=== PATIENT | female | born 1985 | race Caucasian/White ===

== ENCOUNTER 2017-03-03 16:33 | Emergency (ER) | payer BC, MEDICAID ==
[2017-03-03] MEDS ORDERED: ACETAMINOPHEN 325 MG TABLET PO ONE ×2 (17:29→19:08)
--- NOTE | 2017-03-03 17:32 | ER Document Report ---
ED Medical Screen (RME) - General Chief Complaint: Abdominal Pain Stated Complaint: ABDOMINAL PAIN Time Seen by Provider: 03/03/17 17:21 Mode of Arrival: Ambulatory Information source: Patient Notes: This is a 32-year-old female at 6-7 WGA by LMP who presents with abdominal pain and nausea and vomiting. She reports lower abdominal cramping. She also reports severe epigastric discomfort. No fevers or chills. No vaginal bleeding. No dysuria. She has not had an ultrasound or seen OB for this . She took 2 Phenergan suppositories prior to arrival and states that her nausea is improved however her epigastric pain persists. She is suspicious of gallbladder disease, as she states she was told many years ago that she had gallbladder disease. I have greeted and performed a rapid initial assessment of this patient. A comprehensive ED assessment and evaluation of the patient, analysis of test results and completion of the medical decision making process will be conducted by additional ED providers. TRAVEL OUTSIDE OF THE [place] IN LAST 30 DAYS: No - Related Data Allergies/Adverse Reactions: latex [Latex] Allergy (Mild, Verified 03/03/17 16:48) sulfamethoxazole [Sulfamethoxazole] Allergy (Mild, Verified 03/03/17 16:48) Past Medical History - Social History Chew tobacco use (# tins/day): No Frequency of alcohol use: None Drug Abuse: None - Past Medical History Cardiac Medical History: Denies: Hx Coronary Artery Disease, Hx Heart Attack, Hx Hypertension Pulmonary Medical History: Reports: Hx Asthma - EXERCISE INDUCED/MEDICATED, Hx Bronchitis - 2011 Denies: Hx COPD, Hx Pneumonia Neurological Medical History: Reports: Hx Migraine. Denies: Hx Cerebrovascular Accident, Hx Seizures Renal/ Medical History: Denies: Hx Peritoneal Dialysis GI Medical History: Reports: Hx Irritable Bowel. Denies: Hx Hepatitis, Hx Hiatal Hernia, Hx Ulcer Musculoskeltal Medical History: Denies Hx Arthritis, Reports Hx Musculoskeletal Trauma Psychiatric Medical History: Reports: Hx Anxiety, Hx Depression Infectious Medical History: Denies: Hx Hepatitis Past Surgical History: Reports: Hx Section, Hx Gynecologic Surgery, Hx Orthopedic Surgery - Wrist surgery, Hx Tonsillectomy. Denies: Hx Hysterectomy, Hx Mastectomy, Hx Open Heart Surgery, Hx Pacemaker - Immunizations Immunizations up to date: Yes Hx Diphtheria, Pertussis, Tetanus Vaccination: Yes Physical Exam - Vital signs Vitals: Temp Pulse Resp BP Pulse Ox 98.3 F 82 20 121/59 L 100 03/03/17 16:48 03/03/17 16:48 03/03/17 16:48 03/03/17 16:48 03/03/17 16:48 Course - Vital Signs Vital signs: Temp Pulse Resp BP Pulse Ox 98.3 F 82 20 121/59 L 100 03/03/17 16:48 03/03/17 16:48 03/03/17 16:48 03/03/17 16:48 03/03/17 16:48
[2017-03-03 18:04] LABS: ABSOLUTE LYMPHOCYTES (AUTO) 0.5 10^3/uL (0.5-4.7); ABSOLUTE MONOCYTES (AUTO) 0.2 10^3/uL (0.1-1.4); ABSOLUTE NEUT (AUTO) 7.8 10^3/uL (1.7-8.2); BASOPHILS % (AUTO) 0.1 % (0-2); EOSINOPHILS % (AUTO) 0.1 % (0-6); HEMATOCRIT 36.4 % (36.0-47.0); HEMOGLOBIN 12.1 g/dL (12.0-15.5); HGB HCT DIFFERENCE -0.1; LYMPHOCYTES % (AUTO) 5.7 % (13-45); MEAN CORPUSCULAR HEMOGLOBIN 30.9 pg (27.0-33.4); MEAN CORPUSCULAR HGB CONC 33.1 g/dL (32.0-36.0); MEAN CORPUSCULAR VOLUME 93 fl (80-97); MONOCYTES % (AUTO) 2.3 % (3-13); RED BLOOD COUNT 3.91 10^6/uL (3.72-5.28); RED CELL DISTRIBUTION WIDTH 12.5 % (11.5-14.0); SEGMENTED NEUTROPHILS % (AUTO) 91.8 % (42-78); WHITE BLOOD COUNT 8.5 10^3/uL (4.0-10.5)
[2017-03-03 18:11] LABS: APPEARANCE,URINE SLIGHTLY-CLOUDY; BILIRUBIN,URINE NEGATIVE (NEGATIVE); GLUCOSE, URINE 150 mg/dL (NEGATIVE); KETONES,URINE 80 mg/dL (NEGATIVE); LEUKOCYTE ESTERASE,URINE NEGATIVE (NEGATIVE); NITRITE,URINE NEGATIVE (NEGATIVE); PROTEIN,URINE 100 mg/dL (NEGATIVE); URINE SPECIFIC GRAVITY 1.031; UROBILINOGEN,URINE NEGATIVE mg/dL (<2.0)
[2017-03-03 18:22] LABS: ALANINE AMINOTRANSFERASE 20 U/L (9-52); ALBUMIN 4.5 g/dL (3.5-5.0); ALKALINE PHOSPHATASE 40 U/L (38-126); ANION GAP 12 (5-19); ASPARTATE AMINO TRANSFERASE 17 U/L (14-36); BILIRUBIN,DIRECT 0.2 mg/dL (0.0-0.4); BILIRUBIN,TOTAL 0.7 mg/dL (0.2-1.3); BLOOD UREA NITROGEN 13 mg/dL (7-20); CALCIUM 9.8 mg/dL (8.4-10.2); CARBON DIOXIDE 22 mmol/L (22-30); CHLORIDE 102 mmol/L (98-107); CREATININE RESULT 0.61 mg/dL (0.52-1.25); GLUCOSE 111 mg/dL (75-110); SODIUM 136.3 mmol/L (137-145); TOTAL PROTEIN 7.3 g/dL (6.3-8.2)
[2017-03-03] MEDS ORDERED: ONDANSETRON HCL INJ/PF 4 MG/2 ML SDV IV ONE (19:08)
--- NOTE | 2017-03-03 19:09 | RADIOLOGY REPORT (SQ) ---
EXAM DESCRIPTION: U/S OB TRANSVAGINAL W/O DOP COMPLETED DATE/TIME: 03/03/2017 7:00 pm REASON FOR STUDY: early , abdominal pain COMPARISON: None. TECHNIQUE: Transvaginal static and realtime grayscale images acquired of the pelvis. Additional salvador cted spectral and color Doppler images recorded. All images stored on PACs. bHCG: Not available LIMITATIONS: None. FINDINGS: FETUS: Living intrauterine . EGA: 7 weeks 3 days BLADIMIR: 10/17/2017 FHR: 163 beats per minute. SUBCHORIONIC BLEED: Yes SIZE OF BLEED: 1.3 x 1.7 x 0.4 cm UTERUS: No masses. No anomalies. IGHT ADNEXA: Right ovary was not visualized No adnexal free fluid. No adnexal masses. LEFT ADNEXA: Left ovary was not visualized No adnexal free fluid. No adnexal masses. FREE FLUID: None. OTHER: No other significant finding. IMPRESSION: LIVING INTRAUTERINE . EGA 7 weeks 3 day Trimester of : First - 0 to 13 weeks. TECHNICAL DOCUMENTATION: JOB ID: [id number] [employer]- All Rights Reserved
--- NOTE | 2017-03-03 19:18 | ER Document Report ---
ED GI/ - General Mode of Arrival: Ambulatory Information source: Patient TRAVEL OUTSIDE OF THE [place] IN LAST 30 DAYS: No - HPI Patient complains to provider of: Abdominal pain Similar symptoms previously: Yes <MARIA DEL ROSARIO DONATO - Last Filed: 03/04/17 01:38> <MADISON MCPHERSON - Last Filed: 03/16/17 11:17> - General Chief Complaint: Abdominal Pain Stated Complaint: ABDOMINAL PAIN Time Seen by Provider: 03/03/17 17:21 Notes: Patient is a 32-year-old female who presents to the emergency department today with complaints of abdominal pain. Patient states she is , but she is not sure how far along she is. Patient states she believes she is approximately 6 weeks . Patient is A1. Patient states she has a history of chronic abdominal pain. "patient states she has had problems on and off for the last 13 years with her gallbladder. Patient denies any vaginal bleeding and cramping. (MARIA DEL ROSARIO DONATO) - Related Data Allergies/Adverse Reactions: latex [Latex] Allergy (Mild, Verified 03/03/17 16:48) sulfamethoxazole [Sulfamethoxazole] Allergy (Mild, Verified 03/03/17 16:48) Past Medical History - General Information source: Patient - Social History Smoking Status: Current Every Day Smoker Cigarette use (# per day): No Frequency of alcohol use: None Drug Abuse: None Lives with: Family Family History: Reviewed & Not Pertinent, Arthritis, CAD, DM, Hyperlipidemia, Hypertension, Malignancy Patient has suicidal ideation: No Patient has homicidal ideation: No Pulmonary Medical History: Reports: Hx Asthma - EXERCISE INDUCED/MEDICATED, Hx Bronchitis - 2011 Neurological Medical History: Reports: Hx Migraine GI Medical History: Reports: Hx Irritable Bowel Musculoskeltal Medical History: Reports Hx Musculoskeletal Trauma Psychiatric Medical History: Reports: Hx Anxiety, Hx Depression Past Surgical History: Reports: Hx Section, Hx Gynecologic Surgery, Hx Orthopedic Surgery - Wrist surgery, Hx Tonsillectomy - Immunizations Immunizations up to date: Yes Hx Diphtheria, Pertussis, Tetanus Vaccination: Yes <MARIA DEL ROSARIO DONATO - Last Filed: 03/04/17 01:38> Review of Systems - Review of Systems Constitutional: No symptoms reported EENT: No symptoms reported Cardiovascular: No symptoms reported Respiratory: No symptoms reported Gastrointestinal: See HPI, Abdominal pain, Nausea, Vomiting Genitourinary: No symptoms reported Female Genitourinary: See HPI, . denies: Vaginal bleeding Musculoskeletal: No symptoms reported Skin: No symptoms reported Hematologic/Lymphatic: No symptoms reported Neurological/Psychological: No symptoms reported -: Yes All other systems reviewed and negative <MARIA DEL ROSARIO DONATO - Last Filed: 03/04/17 01:38> Physical Exam <MARIA DEL ROSARIO DONATO - Last Filed: 03/04/17 01:38> <MADISON MCPHERSON - Last Filed: 03/16/17 11:17> - Vital signs Vitals: Temp Pulse Resp BP Pulse Ox 98.3 F 82 20 121/59 L 100 03/03/17 16:48 03/03/17 16:48 03/03/17 16:48 03/03/17 16:48 03/03/17 16:48 - Notes Notes: Physical Exam: General: Alert, appears uncomfortable. HEENT: Normocephalic. Atraumatic. PERRL. Extraocular movements intact. Oropharynx clear. Neck: Supple. Non-tender. Respiratory: No respiratory distress. Clear and equal breath sounds bilaterally. Cardiovascular: Regular rate and rhythm. Abdominal: Mild diffuse abdominal tenderness with palpation. No distension. Normal Bowel Sounds. Back: Non-tender. No deformity or step off. Extremities: Moves all four extremities. Upper extremities: Normal inspection. Normal ROM. Lower extremities: Normal inspection. No edema. Normal ROM. Neurological: Normal cognition. AAOx4. Normal speech. Psychological: Normal affect. Normal Mood. Skin: Warm. Dry. Normal color. (KINGA,MARIA DEL ROSARIO) Course - Laboratory Result Diagrams: 03/03/17 17:45 03/03/17 17:45 <MARIA DEL ROSARIO DONATO - Last Filed: 03/04/17 01:38> - Laboratory Result Diagrams: 03/03/17 17:45 03/03/17 17:45 <MADISON MCPHERSON - Last Filed: 03/16/17 11:17> - Re-evaluation Re-evalutation: 03/03/17 20:50 Emergency department chief complaint of epigastric abdominal pain and vomiting. She is early in her about 6-7 weeks by dates. She has a chronic history of chronic abdominal pain gastroparesis and used to see a GI specialist but due to running out of insurance has not seen them lately. She has mild epigastric pain which she describes as similar to her previous episodes also was told a number years ago she had some gallstones but was not surgical in nature. She denies any fevers chills cough chest pain is also had some nausea and vomiting with this. Does not radiate into the back she is not short of breath or chest pain. No urinary symptoms vaginal bleeding or discharge. No low back pain. On physical exam she is well-appearing nontoxic vomiting at the bedside. Blood pressure stable she is afebrile not tachycardic heart lungs normal abdomen mild epigastric tenderness without associated guarding rebound rigidity pulsatile abdominal masses or concerns for intra-abdominal surgical condition. She given IV fluids Reglan and Zofran with significant improvement. Laboratory evaluation is nonacute and ultrasound shows her to have an IUP at 7 weeks and 3 days. She has not have a primary care physician a GI specialist or women's health clinic. Placed her information into the box of the practice managers to follow-up and secure some appointments with women's health clinic and care in community clinic with possible referral to GI. And discussed reasons for ED return sooner (MADISON MCPHERSON) - Vital Signs Vital signs: Temp Pulse Resp BP Pulse Ox 98.3 F 81 18 121/80 100 03/03/17 16:49 03/03/17 21:01 03/03/17 21:01 03/03/17 21:01 03/03/17 21:09 - Laboratory Laboratory results interpreted by me: 03/03/17 03/03/17 03/03/17 17:45 17:45 17:45 Plt Count 148 L Seg Neutrophils % 91.8 H Lymphocytes % 5.7 L Monocytes % 2.3 L Sodium 136.3 L Glucose 111 H Beta HCG, Quant 750538.00 H Urine Protein 100 H Urine Glucose (UA) 150 H Urine Ketones 80 H Discharge <MARIA DEL ROSARIO DONATO - Last Filed: 03/04/17 01:38> <MADISON MCPHERSON - Last Filed: 03/16/17 11:17> - Discharge Clinical Impression: Abdominal pain with history gastroparesi, Vomiting Condition: Stable Disposition: HOME, SELF-CARE Instructions: Abdominal Pain ([facility]) Additional Instructions: Abdominal Pain There are many causes of abdominal pain. Pain can mean a serious problem requiring surgery (such as appendicitis). It can also be an innocent problem that goes away on its own (such as a viral infection). Often, time must pass to determine the cause of pain. The physician does not feel that hospitalization is necessary, at present. Things may change within the next 24 hours. Call the doctor or come back for re- examination if any problems occur, such as: (1) Pain that becomes more severe, steady, or becomes concentrated in one specific area. Also, pain that is more severe with movement or coughing. (2) Vomiting that persists or becomes more frequent. (3) Blood in the vomitus, urine, or bowel movements. Blood in the stool may have a tarry or black appearance. (4) Shaking chills or fever greater than 100 degrees F. (5) The abdomen becomes more distended or swollen. (6) Bowel movements cease. (7) Failure to improve as expected. You are . care is best started as early in as possible. If you're unsure about continuing this , you should discuss this with your physician or with surveyor instrument assistant at [facility]. You should take only medications approved by your physician. Acetaminophen can safely be taken for minor pains. As a rule, medication for chronic conditions such as asthma or seizures can safely be continued. You should discuss with the physician every medicine you take. Any regular exercise program can be continued. Talk to your physician, however, before engaging in competitive or demanding sports. Alcohol, smoking, and "street drugs" are dangerous to your baby. Cocaine is especially dangerous. Don't use any illicit drugs! Vomiting Vomiting can be part of many illnesses. Most cases of vomiting are due to gastroenteritis, usually a viral infection in the intestinal tract. There is no specific treatment. The disease will end by itself. For now, the main danger to your child is dehydration. During the first few hours of the illness, give clear liquids, such as Pedialyte. Try to give small quantities frequently, such as a teaspoon of liquid every minute or about an ounce of fluids every five to ten minutes. Medications may be prescribed by the physician for special cases. After an hour or two of fluids without vomiting, add rice cereal, toast, applesauce, or bananas and other more solid foods to the clear liquids. Call the physician or go to the hospital if vomiting increases or blood appears in the bowel movement or vomitus; if your child fails to improve, or if signs of dehydration occur (no wet diapers for eight to twelve hours, tongue and mouth become dry, not acting as alert as usual). Prescriptions: Metoclopramide HCl [Reglan 10 mg Tablet] 1 - 2 tab PO ASDIR PRN #25 tablet PRN Reason: Forms: Return to Work Referrals: [facility] [Provider Group] (call For an appointment to be seen in follow-up in 3-4 days return for increased worsening or new symptoms) [facility] [Provider Group] (call For an appointment to be seen in 3-4 days and referral to GI specialist for gastroparesis. Return for increasing worsening or new symptoms) Scribe Attestation: 03/03/17 20:50 I personally performed the services described in the documentation reviewed the documentation recorded by my scribe in my presence and it accurately and completely records my words and actions (MADISON MCPHERSON) Scribe Documentation - Scribe Written by Jannet:: Jannet Mann, 03/04/2017 acting as scribe for :: Raheem <MARIA DEL ROSARIO DONATO - Last Filed: 03/04/17 01:38>
[2017-03-03] MEDS ORDERED: METOCLOPRAMIDE HCL INJ/PF 10 MG/2 ML SDV IV ONE (19:19)
[2017-03-03 21:21] VITALS: BP 121/80
== END 2017-03-03 21:15 | disposition home or self-care (01) ==
LOC: ER 16:33
DX: O26.91 Pregnancy related conditions, unspecified, first trimester (principal); R10.9 Unspecified abdominal pain; O21.9 Vomiting of pregnancy, unspecified; O99.331 Smoking (tobacco) complicating pregnancy, first trimester; Z3A.01 Less than 8 weeks gestation of pregnancy; Z91.040 Latex allergy status
CPT/HCPCS: 99284; 96374; 36415; 84702; 83690; 85025; 80053; 81001; 76817; J3490; J2765

== ENCOUNTER 2017-06-17 05:31 | Emergency (ER) | payer MEDICAID ==
[2017-06-17] MEDS: NORMAL SALINE 1000 ML 1,000 ML IV PRN ×2 (06:22→06:23)
[2017-06-17 06:36] LABS: ABSOLUTE LYMPHOCYTES (AUTO) 0.6 10^3/uL (0.5-4.7); ABSOLUTE MONOCYTES (AUTO) 0.1 10^3/uL (0.1-1.4); ABSOLUTE NEUT (AUTO) 9.5 10^3/uL (1.7-8.2); BASOPHILS % (AUTO) 0.2 % (0-2); HEMATOCRIT 31.9 % (36.0-47.0); HEMOGLOBIN 11.4 g/dL (12.0-15.5); HGB HCT DIFFERENCE 2.3; LYMPHOCYTES % (AUTO) 6.2 % (13-45); MEAN CORPUSCULAR HEMOGLOBIN 33.1 pg (27.0-33.4); MEAN CORPUSCULAR HGB CONC 35.8 g/dL (32.0-36.0); MEAN CORPUSCULAR VOLUME 92 fl (80-97); MONOCYTES % (AUTO) 1.4 % (3-13); RED BLOOD COUNT 3.45 10^6/uL (3.72-5.28); SEGMENTED NEUTROPHILS % (AUTO) 92.2 % (42-78); WHITE BLOOD COUNT 10.3 10^3/uL (4.0-10.5)
[2017-06-17 06:46] LABS: ALANINE AMINOTRANSFERASE 24 U/L (9-52); ALKALINE PHOSPHATASE 51 U/L (38-126); ANION GAP 8 (5-19); ASPARTATE AMINO TRANSFERASE 19 U/L (14-36); BILIRUBIN,DIRECT 0.3 mg/dL (0.0-0.4); BILIRUBIN,TOTAL 0.5 mg/dL (0.2-1.3); BLOOD UREA NITROGEN 10 mg/dL (7-20); CALCIUM 9.3 mg/dL (8.4-10.2); CARBON DIOXIDE 25 mmol/L (22-30); CHLORIDE 104 mmol/L (98-107); CREATININE RESULT 0.55 mg/dL (0.52-1.25); GLUCOSE 109 mg/dL (75-110); LIPASE 80.5 U/L (23-300); POTASSIUM 3.9 mmol/L (3.6-5.0); SODIUM 136.8 mmol/L (137-145); TOTAL PROTEIN 6.5 g/dL (6.3-8.2)
--- NOTE | 2017-06-17 07:45 | ER Document Report ---
ED General - General Chief Complaint: Nausea/Vomiting Stated Complaint: VOMITING Time Seen by Provider: 06/17/17 06:07 Mode of Arrival: Ambulatory Information source: Patient Notes: 32-year-old female who is approximately 25 weeks presents with complaints of nausea vomiting. pt denies any fevers or chills, denies any abd pain TRAVEL OUTSIDE OF THE [place] IN LAST 30 DAYS: No - HPI Onset: Just prior to arrival Onset/Duration: Sudden Quality of pain: No pain Severity: Mild Pain Level: Denies Associated symptoms: Nausea, Vomiting Exacerbated by: Denies Relieved by: Denies Similar symptoms previously: Yes Recently seen / treated by doctor: Yes - Related Data Allergies/Adverse Reactions: latex [Latex] Allergy (Mild, Verified 03/03/17 16:48) sulfamethoxazole [Sulfamethoxazole] Allergy (Mild, Verified 03/03/17 16:48) Home Medications: Current Home Medications Albuterol Sulfate [Proair HFA] 2 puff .ROUTE Q4HP PRN 06/17/17 [History] Doxylamine Succinate/Vit B6 [Diclegis Dr 10-10 mg Tablet] 2 tab PO QHS 06/17/17 [History] Inulin/Chromium Picolinate [Fiber Gummies] 1 each PO DAILY 06/17/17 [History] Magnesium Oxide [Magnesium Oxide] 1 tab PO TID 06/17/17 [History] Metoclopramide HCl 10 mg PO QHS 06/17/17 [History] Mometasone Furoate [Nasonex] 1 spray ASDIR PRN 06/17/17 [History] No122/Iron/Folic Acid [ Multi Tablet] 1 each PO DAILY 06/17/17 [History] Sumatriptan Succinate [Zembrace Symtouch] 1 dose ASDIR PRN 06/17/17 [History] Past Medical History - Social History Smoking Status: Never Smoker Cigarette use (# per day): No Chew tobacco use (# tins/day): No Smoking Education Provided: No Family History: Reviewed & Not Pertinent, Arthritis, CAD, DM, Hyperlipidemia, Hypertension, Malignancy Patient has suicidal ideation: No Patient has homicidal ideation: No - Past Medical History Cardiac Medical History: Denies: Hx Coronary Artery Disease, Hx Heart Attack, Hx Hypertension Pulmonary Medical History: Reports: Hx Asthma - EXERCISE INDUCED/MEDICATED, Hx Bronchitis - 2012 Denies: Hx COPD, Hx Pneumonia Neurological Medical History: Reports: Hx Migraine. Denies: Hx Cerebrovascular Accident, Hx Seizures Renal/ Medical History: Denies: Hx Peritoneal Dialysis GI Medical History: Reports: Hx Irritable Bowel. Denies: Hx Hepatitis, Hx Hiatal Hernia, Hx Ulcer Musculoskeltal Medical History: Denies Hx Arthritis, Reports Hx Musculoskeletal Trauma Psychiatric Medical History: Reports: Hx Anxiety, Hx Depression Infectious Medical History: Denies: Hx Hepatitis Past Surgical History: Reports: Hx Section, Hx Gynecologic Surgery, Hx Orthopedic Surgery - Wrist surgery, Hx Tonsillectomy. Denies: Hx Hysterectomy, Hx Mastectomy, Hx Open Heart Surgery, Hx Pacemaker - Immunizations Immunizations up to date: Yes Hx Diphtheria, Pertussis, Tetanus Vaccination: Yes Review of Systems - Review of Systems Notes: REVIEW OF SYSTEMS: CONSTITUTIONAL : Denies fever, chills, or sweats. Denies recent illness. EENT: Denies eye, ear, throat, or mouth pain or symptoms. Denies nasal or sinus congestion or discharge. Denies throat, tongue, or mouth swelling or difficulty swallowing. CARDIOVASCULAR: Denies chest pain. Denies palpitations or racing or irregular heart beat. Denies ankle edema. RESPIRATORY: Denies cough, cold, or chest congestion. Denies shortness of breath, difficulty breathing, or wheezing. GASTROINTESTINAL: Admits nausea vomiting GENITOURINARY: Denies difficulty urinating, painful urination, burning, frequency, blood in urine, or discharge. FEMALE GENITOURINARY: Denies vaginal bleeding, heavy or abnormal periods, irregular periods. Denies vaginal discharge or odor. MUSCULOSKELETAL: Denies back or neck pain or stiffness. Denies joint pain or swelling. SKIN: Denies rash, lesions or sores. HEMATOLOGIC : Denies easy bruising or bleeding. LYMPHATIC: Denies swollen, enlarged glands. NEUROLOGICAL: Denies confusion or altered mental status. Denies passing out or loss of consciousness. Denies dizziness or lightheadedness. Denies headache. Denies weakness or paralysis or loss of use of either side. Denies problems with gait or speech. Denies sensory loss, numbness, or tingling. Denies seizures. PSYCHIATRIC: Denies anxiety or stress. Denies depression, suicidal ideation, or homicidal ideation. ALL OTHER SYSTEMS REVIEWED AND NEGATIVE. PHYSICAL EXAMINATION: GENERAL: Well-appearing, well-nourished and in no acute distress. HEAD: Atraumatic, normocephalic. EYES: Pupils equal round and reactive to light, extraocular movements intact, conjunctiva are normal. ENT: Nares patent, oropharynx clear without exudates. Moist mucous membranes. NECK: Normal range of motion, supple without lymphadenopathy LUNGS: Breath sounds clear to auscultation bilaterally and equal. No wheezes rales or rhonchi. HEART: Regular rate and rhythm without murmurs ABDOMEN: Soft, nontender, nondistended abdomen. No guarding, no rebound. No masses appreciated. Female : deferred Musculoskeletal: Normal range of motion, no pitting or edema. No cyanosis. NEUROLOGICAL: Cranial nerves grossly intact. Normal speech, normal gait. Normal sensory, motor exams PSYCH: Normal mood, normal affect. SKIN: Warm, Dry, normal turgor, no rashes or lesions noted. Dictation was performed using [employer] voice recognition software Physical Exam - Vital signs Vitals: Temp Pulse Resp BP Pulse Ox 98.1 F 91 16 128/72 H 100 06/17/17 05:36 06/17/17 05:36 06/17/17 05:36 06/17/17 05:36 06/17/17 05:36 Course - Re-evaluation Re-evalutation: 06/17/17 07:54 Patient's lab work notes no significant abnormality, she is noted to have improvement with fluids and Zofran 06/17/17 08:45 Patient notes that she feels much better I will discharge her at this time, very strict return precautions have been provided to the patient given that she is and nauseated After performing a Medical Screening Examination, I estimate there is LOW risk for ACUTE APPENDICITIS, BOWEL OBSTRUCTION, ACUTE CHOLECYSTITIS, PERFORATED DIVERTICULITIS, INCARCERATED HERNIA, PANCREATITIS, PELVIC INFLAMMATORY DISEASE, PERFORATED ULCER, ECTOPIC , or TUBO-OVARIAN ABSCESS, thus I consider the discharge disposition reasonable. Also, there is no evidence or peritonitis , sepsis, or toxicity. I have reevaluated this patient multiple times and no significant life threatening changes are noted. The patient and I have discussed the diagnosis and risks, and we agree with discharging home with close follow-up with the understanding that symptoms and presentations can change. We also discussed returning to the Emergency Department immediately if new or worsening symptoms occur. We have discussed the symptoms which are most concerning (e.g., bloody stool, fever, changing or worsening pain, vomiting) that necessitate immediate return. - Vital Signs Vital signs: Temp Pulse Resp BP Pulse Ox 98.1 F 91 16 128/72 H 100 06/17/17 05:36 06/17/17 05:36 06/17/17 05:36 06/17/17 05:36 06/17/17 05:36 - Laboratory Result Diagrams: 06/17/17 06:25 06/17/17 06:25 Laboratory results interpreted by me: 06/17/17 06/17/17 06/17/17 06:25 06:25 08:00 RBC 3.45 L Hgb 11.4 L Hct 31.9 L Seg Neutrophils % 92.2 H Lymphocytes % 6.2 L Monocytes % 1.4 L Absolute Neutrophils 9.5 H Sodium 136.8 L Urine Protein 30 H Urine Glucose (UA) 50 H Urine Ketones 20 H Ur Leukocyte Esterase SMALL H Discharge - Discharge Clinical Impression: Nausea & vomiting Qualifiers: Vomiting type: unspecified Vomiting Intractability: non-intractable Qualified Code(s): R11.2 - Nausea with vomiting, unspecified Condition: Stable Disposition: HOME, SELF-CARE Instructions: Vomiting ([facility]) Prescriptions: Metoclopramide HCl [Reglan 10 mg Tablet] 1 - 2 tab PO ASDIR PRN #25 tablet PRN Reason: Referrals: CATHERINE OLSEN MD [Primary Care Provider] - Follow up tomorrow
[2017-06-17 08:43] LABS: APPEARANCE,URINE CLEAR; BILIRUBIN,URINE NEGATIVE (NEGATIVE); GLUCOSE, URINE 50 mg/dL (NEGATIVE); KETONES,URINE 20 mg/dL (NEGATIVE); LEUKOCYTE ESTERASE,URINE SMALL (NEGATIVE); NITRITE,URINE NEGATIVE (NEGATIVE); PROTEIN,URINE 30 mg/dL (NEGATIVE); URINE SPECIFIC GRAVITY 1.013; UROBILINOGEN,URINE NEGATIVE mg/dL (<2.0)
[2017-06-17 09:02] VITALS: BP 110/67
== END 2017-06-17 09:03 | disposition home or self-care (01) ==
LOC: ER 05:31
DX: O21.9 Vomiting of pregnancy, unspecified (principal); O99.519 Diseases of the respiratory system complicating pregnancy, unspecified trimester; J45.909 Unspecified asthma, uncomplicated; Z3A.00 Weeks of gestation of pregnancy not specified; Z88.2 Allergy status to sulfonamides; Z91.040 Latex allergy status; Z87.19 Personal history of other diseases of the digestive system
CPT/HCPCS: 99283; 96360; 36415; 83690; 85025; 80053; 81001; J7030

== ENCOUNTER 2017-09-26 19:52 | Outpatient (CLI) | payer MEDICAID ==
[2017-09-26 20:37] LABS: APPEARANCE,URINE SLIGHTLY-CLOUDY; BILIRUBIN,URINE NEGATIVE (NEGATIVE); CALCIUM OXALATE CRYSTALS,URINE MODERATE /HPF; COLOR,URINE YELLOW; GLUCOSE, URINE 150 mg/dL (NEGATIVE); KETONES,URINE TRACE mg/dL (NEGATIVE); LEUKOCYTE ESTERASE,URINE NEGATIVE (NEGATIVE); NITRITE,URINE NEGATIVE (NEGATIVE); PROTEIN,URINE NEGATIVE (NEGATIVE); URINE SPECIFIC GRAVITY 1.029; UROBILINOGEN,URINE NEGATIVE mg/dL (<2.0)
[2017-09-26 20:49] LABS: URINE AMPHETAMINES SCREEN NEGATIVE; URINE BARBITURATES SCREEN NEGATIVE; URINE BENZODIAZEPINES SCREEN NEGATIVE; URINE COCAINE SCREEN NEGATIVE; URINE METHADONE SCREEN NEGATIVE; URINE PHENCYCLIDINE SCREEN NEGATIVE
--- NOTE | 2017-09-26 20:52 | Non Stress Test Report ---
Non Stress Test Datetime Report Generated by CPN: 09/26/2017 20:51 DEMOGRAPHIC EGA NST: 36.4 INDICATION Indication for Study: Ordered by Provider URINE RESULTS Urine Protein, NST: Negative Urine Ketones - NST: Positive Urine Glucose - NST: Positive Urine Blood - NST: Negative MONITORING Monitor Explained: Monitor Explained; Test Explained; Patient Verbalized Understanding Time on Monitor: 09/26/2017 20:12 Time off Monitor: 09/26/2017 20:44 NST Duration: 32 NST INTERVENTIONS NST Interventions: PO Hydration; Reposition Patient Physician Notified NST: Dr. Newell BABY A: [id number] BABY A Movement : Present Contraction Frequency : occasional FHR Baseline : 125 Accelerations : 15X15 Decelerations : None Variability : Moderate 6-25bpm NST Review: Meets Criteria for Reactive NST NST Review and Verified By : Garo Zurita RN NST Results: Reactive NST REPORT Report Trigger: Send Report
[2017-09-26 20:58] LABS: URINE MARIJUANA (THC) SCREEN UNCONFIRMED POSITIVE
== END 2017-09-26 21:02 | disposition home or self-care (01) ==
LOC: LC 19:52
PROVIDERS: ATTEND Obstetrics & Gynecology
PROC: 4A1HXCZ Monitoring of Products of Conception, Cardiac Rate, External Approach (ICD-10-PCS; principal; 2017-09-26)
DX: O47.03 False labor before 37 completed weeks of gestation, third trimester (principal); O99.283 Endocrine, nutritional and metabolic diseases complicating pregnancy, third trimester; E86.0 Dehydration; Z3A.36 36 weeks gestation of pregnancy
CPT/HCPCS: 59025; 81001; 80307; G0480 ×2

== ENCOUNTER 2017-09-29 23:07 | Outpatient (CLI) | payer MEDICAID ==
[2017-09-29 23:42] LABS: APPEARANCE,URINE CLEAR; BILIRUBIN,URINE NEGATIVE (NEGATIVE); COLOR,URINE STRAW; GLUCOSE, URINE NEGATIVE (NEGATIVE); KETONES,URINE NEGATIVE (NEGATIVE); LEUKOCYTE ESTERASE,URINE NEGATIVE (NEGATIVE); NITRITE,URINE NEGATIVE (NEGATIVE); PROTEIN,URINE NEGATIVE (NEGATIVE); URINE SPECIFIC GRAVITY 1.004; UROBILINOGEN,URINE NEGATIVE mg/dL (<2.0)
[2017-09-29 23:57] LABS: URINE AMPHETAMINES SCREEN NEGATIVE; URINE BARBITURATES SCREEN NEGATIVE; URINE BENZODIAZEPINES SCREEN NEGATIVE; URINE COCAINE SCREEN NEGATIVE; URINE MARIJUANA (THC) SCREEN NEGATIVE; URINE METHADONE SCREEN NEGATIVE; URINE PHENCYCLIDINE SCREEN NEGATIVE
== END 2017-09-30 00:40 | disposition home or self-care (01) ==
LOC: LC 23:07
PROVIDERS: ATTEND Obstetrics & Gynecology
PROC: 4A1HXCZ Monitoring of Products of Conception, Cardiac Rate, External Approach (ICD-10-PCS; principal; 2017-09-29)
DX: O47.1 False labor at or after 37 completed weeks of gestation (principal); Z3A.37 37 weeks gestation of pregnancy
CPT/HCPCS: 59025; 80307; 81005

== ENCOUNTER 2017-10-09 10:24 | Outpatient (CLI) | payer MEDICAID ==
--- NOTE | 2017-10-09 10:55 | Non Stress Test Report ---
Non Stress Test Datetime Report Generated by CPN: 10/09/2017 10:55 DEMOGRAPHIC EGA NST: 38.3 EGA NST: 37.0 INDICATION Indication for Study: Decreased Movement; Ordered by Provider Indication for Study: Ordered by Provider VITAL SIGNS Temperature - NST: 98.4 Pulse - NST: 73 RESP - NST: 16 NBPSYS NST: 112 NBPDIA NST: 73 URINE RESULTS Urine Protein, NST: Negative Urine Ketones - NST: Negative Urine Glucose - NST: Negative Urine Blood - NST: Negative MONITORING Monitor Explained: Monitor Explained; Test Explained; Patient Verbalized Understanding Monitor Explained: Monitor Explained; Test Explained; Patient Verbalized Understanding Time on Monitor: 10/09/2017 10:36 Time on Monitor: 09/29/2017 23:26 Time off Monitor: 10/09/2017 10:56 Time off Monitor: 09/30/2017 00:21 NST Duration: 20 NST Duration: 55 NST INTERVENTIONS NST Interventions: PO Hydration NST Interventions: None Physician Notified NST: A Corrales CNM Physician Notified NST: Dr. Augie BABY A: [id number] BABY A Movement : Present Movement : Present Contraction Frequency : x1 Contraction Frequency : Irregular FHR Baseline : 130 FHR Baseline : 115 Accelerations : 15X15 Accelerations : 15X15 Decelerations : None Decelerations : None Variability : Moderate 6-25bpm Variability : Moderate 6-25bpm NST Review: Meets Criteria for Reactive NST NST Review: Meets Criteria for Reactive NST NST Review and Verified By : Tawnya Hernandez [facility] NST Results: Reactive NST Results: Reactive NST REPORT Report Trigger: Send Report
== END 2017-10-09 11:00 | disposition home or self-care (01) ==
LOC: LC 10:24
PROVIDERS: ATTEND Student in an Organized Health Care Education/Training Program
PROC: 4A1HXCZ Monitoring of Products of Conception, Cardiac Rate, External Approach (ICD-10-PCS; principal; 2017-10-09)
DX: O36.8130 Decreased fetal movements, third trimester, not applicable or unspecified (principal); O47.1 False labor at or after 37 completed weeks of gestation; Z3A.38 38 weeks gestation of pregnancy
CPT/HCPCS: 59025

== ENCOUNTER 2017-10-13 05:02 | Inpatient (IN) | payer MEDICAID ==
[2017-10-12 12:37] LABS: ABSOLUTE LYMPHOCYTES (AUTO) 1.8 10^3/uL (0.5-4.7); ABSOLUTE MONOCYTES (AUTO) 0.6 10^3/uL (0.1-1.4); ABSOLUTE NEUT (AUTO) 5.7 10^3/uL (1.7-8.2); BASOPHILS % (AUTO) 0.6 % (0-2); EOSINOPHILS % (AUTO) 0.5 % (0-6); LYMPHOCYTES % (AUTO) 22.2 % (13-45); MEAN CORPUSCULAR HEMOGLOBIN 32.8 pg (27.0-33.4); MEAN CORPUSCULAR HGB CONC 35.2 g/dL (32.0-36.0); MEAN CORPUSCULAR VOLUME 93 fl (80-97); MONOCYTES % (AUTO) 7.6 % (3-13); PLATELET COUNT 153 10^3/uL (150-450); RED BLOOD COUNT 3.96 10^6/uL (3.72-5.28); RED CELL DISTRIBUTION WIDTH 13.6 % (11.5-14.0); SEGMENTED NEUTROPHILS % (AUTO) 69.1 % (42-78); TOTAL CELLS COUNTED % (AUTO) 100 %; WHITE BLOOD COUNT 8.3 10^3/uL (4.0-10.5)
[2017-10-12 12:47] LABS: APPEARANCE,URINE CLEAR; BILIRUBIN,URINE NEGATIVE (NEGATIVE); COLOR,URINE YELLOW; GLUCOSE, URINE 50 mg/dL (NEGATIVE); KETONES,URINE NEGATIVE (NEGATIVE); LEUKOCYTE ESTERASE,URINE TRACE (NEGATIVE); NITRITE,URINE NEGATIVE (NEGATIVE); PROTEIN,URINE NEGATIVE (NEGATIVE); URINE SPECIFIC GRAVITY 1.013; UROBILINOGEN,URINE NEGATIVE mg/dL (<2.0)
[2017-10-12 12:59] LABS: URINE AMPHETAMINES SCREEN NEGATIVE; URINE BARBITURATES SCREEN NEGATIVE; URINE BENZODIAZEPINES SCREEN NEGATIVE; URINE COCAINE SCREEN NEGATIVE; URINE MARIJUANA (THC) SCREEN NEGATIVE; URINE METHADONE SCREEN NEGATIVE; URINE PHENCYCLIDINE SCREEN NEGATIVE
[~2017-10-13 05:02] MED LIST: LACTATED RINGERS 1000 ML IV PRN; LIDOCAINE 0.5% INJ-PF (5 MG/ML) 50 ML SDV SUBCUT PRN; RINGERS SOLUTION,LACTATED 1,500 ML IV PRN
[2017-10-13] MEDS: AZITHROMYCIN 500 MG in DEXTROSE 5%-WATER 250 ML IV PRN ×3 (06:47→11:33)
[2017-10-13] MEDS ORDERED: FENTANYL CITRATE INJ/PF 100 MCG/2 ML AMPUL ONE (07:11)
[2017-10-13] MEDS ORDERED: EPHEDRINE SULFATE INJ 50 MG/1 ML AMPULE ONE (07:11)
[2017-10-13] MEDS ORDERED: OXYTOCIN 10 UNIT/ML VIAL ONE (07:11)
[2017-10-13] MEDS ORDERED: MIDAZOLAM 2 MG/2 ML INJ ONE (07:12)
[2017-10-13] MEDS ORDERED: OXYTOCIN/NORMAL SALINE 20 UNIT/1,000 ML RTUINJ ONE ×2 (07:12→10:08)
[2017-10-13] MEDS ORDERED: ONDANSETRON HCL INJ/PF 4 MG/2 ML SDV ONE (07:12)
[2017-10-13] MEDS ORDERED: PROMETHAZINE HCL INJ 25 MG/1 ML VIAL IV PRN (07:26)
[2017-10-13] MEDS ORDERED: DIPHENHYDRAMINE HCL 50 MG/ML VIAL IV PRN (07:26)
[2017-10-13] MEDS ORDERED: FENTANYL CITRATE INJ/PF 100 MCG/2 ML AMPUL IV PRN ×3 (07:26)
[2017-10-13] MEDS ORDERED: ONDANSETRON HCL INJ/PF 4 MG/2 ML SDV IV PRN (07:26)
[2017-10-13] MEDS ORDERED: MORPHINE SULFATE 10 MG/ML INJ IV PRN (07:26)
[2017-10-13] MEDS ORDERED: MEPERIDINE HCL/PF INJ 25 MG/1 ML DISP.SYRIN IV PRN (07:26)
[2017-10-13] MEDS ORDERED: NALBUPHINE HCL INJ 10 MG/1 ML AMPULE ONE ×2 (08:04→08:37)
--- NOTE | 2017-10-13 08:20 | PDOC DELIVERY SUMMARY ---
Delivery Summary - Maternal Hx : III Hx # Term Pregnancies: 1 Hx Total # of Abortions (Sponateous & Elective): 1 BLADIMIR: 10/20/17 Gestational Age: 39 Ruptured Membranes: AROM Time of Rupture: 07:55 Fluids: Clear - Delivery Presentation: Vertex Heart Rate Monitoring: Done Pre-Operatively Support Person Present: Yes Location: OR : Scheduled, Repeat Placenta: Within Normal Limits Delivery of Placenta Date: 10/13/17 Delivery of Placenta Time: 07:56 - Medications Type of Anesthesia:: Spinal - Assess and Care Baby 1 Male Delivery of Date: 10/13/17 Delivery of Infant Time: 07:56 at 1 minute: 8 at 5 minutes: 9 Preprinted Number On Band: [id number] Skin to Skin: No To Nursery At: 08:04 Mode of Transport: Bassinet - Delivery Personnel Laboratory Analyst: TADEO MANNING Nursecarlos RN: GABI CERVANTES RN: SOBIA JENKINS MD: ED ARELLANO
[2017-10-13] MEDS ORDERED: ACETAMINOPHEN 100 ML IV ONE (08:37)
[2017-10-13] MEDS ORDERED: OXYTOCIN/NORMAL SALINE 20 UNIT/1,000 ML RTUINJ INJ PRN ×2 (08:45→12:40)
--- NOTE | 2017-10-13 08:49 | OPERATIVE REPORT E ---
Operative Report NAME: HENRRY CARTER : 1985 AGE: 32Y DATE OF SURGERY: 10/13/2017 ROOM: 222 PREOPERATIVE DIAGNOSES: 1. IUP AT TERM WITH REPEAT . 2. DESIRE FOR STERILIZATION. POSTOPERATIVE DIAGNOSIS: 1. IUP AT TERM WITH REPEAT . 2. DESIRE FOR STERILIZATION. OPERATION: 1. Repeat low transverse ; delivery of viable male. Apgars of 8 and 9. Weight 6 pounds 12 ounces. 2. A bilateral tubal occlusion using Filshie clips. SURGEON: Conor ARELLANO M.D. ANESTHESIA: Spinal. TISSUE REMOVED OR ALTERED: Placenta. ESTIMATED BLOOD LOSS: Less than 600 mL. PROCEDURE: Patient was placed in a supine position and rolled onto her right side, prepped and draped in sterile fashion. Pfannenstiel incision was made through then existing Pfannenstiel eschar, and the incision extended through the subcutaneous tissue and fat with sharp dissection. Fascia sharply divided. Rectus muscle bluntly and sharply divided. Parietal peritoneum was entered with sharp dissection. Uterus nicked in the midline, extended bilaterally. was then delivered through the uterine abdominal incision. Nose and mouth suctioned with a bulb syringe. Cord was clamped. Infant was passed from the table. Placenta was manually extracted. The uterus was closed in 2 layers using 0 Vicryl, first in a running stitch and the second in a Lembert stitch, imbricating the first layer. A small amount of bleeding was noted in the right angle and was controlled with a [id number] of 0 Vicryl. The left fallopian tube was banded in the midportion with a good purchase of tissue being noted and repeated on the right. The tubes were identified through the fimbria prior to and after banding. The fascia then closed with 0 Vicryl. The skin was closed with subcu absorbable gerson. Her urine remained clear throughout the procedure. She was taken to recovery room in good condition; the infant to nursery in good condition. DICTATING PHYSICIAN: Conor ARELLANO M.D. [id number] PHY#: [id number] ID: [id number] JOB#: [id number] ACCT: [id number] cc:Conor ARELLANO M.D. >
[2017-10-13] MEDS ORDERED: OXYCODONE-ACETAMINOPHEN 5-325 MG TABLET PO PRN ×3 (09:00→13:00)
[2017-10-13] MEDS ORDERED: MEASLES,MUMPS&RUBELLA VACC/PF 0.5 ML VIAL SUBCUT PRN ×2 (09:00→13:00)
[2017-10-13] MEDS ORDERED: DIPH/PERTUSS(ACELL)/TETANUS VAC/PF 0.5 ML SYR (>=10YO) IM PRN ×2 (09:00→13:00)
[2017-10-13] MEDS ORDERED: RINGERS SOLUTION,LACTATED 1,000 ML IV SCH ×2 (09:00→13:00)
[2017-10-13] MEDS ORDERED: ACETAMINOPHEN 325 MG TABLET PO PRN ×2 (09:00→13:00)
[2017-10-13] MEDS ORDERED: PROMETHAZINE HCL INJ 25 MG/1 ML VIAL IM PRN ×2 (09:00→13:00)
[2017-10-13] MEDS: HYDROMORPHONE HCL INJ/PF 2 MG/ML AMPULE IV PRN ×3 (09:54→16:56)
[2017-10-13] MEDS ORDERED: HYDROMORPHONE HCL INJ/PF 2 MG/ML AMPULE ONE (09:54)
[2017-10-13] MEDS: OXYCODONE-ACETAMINOPHEN 5-325 MG TABLET PO PRN ×3 (11:19→22:36)
[2017-10-13] MEDS: CEFAZOLIN 1 GM/D5W RTU 1 GM/50 ML RTUPB IV PRN ×2 (11:20→11:33)
[2017-10-13] MEDS: IBUPROFEN 800 MG TABLET PO SCH ×2 (11:20→18:24)
[2017-10-13] MEDS: PRENATAL VITAMIN W DHA CAPSULE PO SCH (11:20)
[2017-10-13] MEDS: DOCUSATE SODIUM 100 MG CAPSULE PO SCH ×3 (11:20→18:24)
[2017-10-13] MEDS ORDERED: DEXTROSE 5%-LACTATED RINGERS 1,000 ML IV PRN (12:41)
[2017-10-13] MEDS ORDERED: PHENYLEPHRINE HCL INJ/PF 10 MG/1 ML SDV ONE (12:43)
[2017-10-13] MEDS ORDERED: DEXAMETHASONE SOD PHOSPHATE INJ 4 MG/1 ML VIAL ONE (12:43)
[2017-10-13] MEDS ORDERED: SIMETHICONE 80 MG TAB.CHEW PO PRN (13:00)
[2017-10-13] MEDS ORDERED: HYDROMORPHONE HCL INJ/PF 2 MG/ML AMPULE IV PRN (13:00)
[2017-10-13] MEDS: SIMETHICONE 80 MG TAB.CHEW PO PRN ×2 (13:04→17:18)
[2017-10-14] MEDS: IBUPROFEN 800 MG TABLET PO SCH ×5 (00:12→17:34)
[2017-10-14] MEDS: OXYCODONE-ACETAMINOPHEN 5-325 MG TABLET PO PRN ×4 (02:44→20:29)
[2017-10-14] MEDS ORDERED: OXYCODONE HCL IR 5 MG TABLET PO ONE (07:00)
[2017-10-14 07:07] LABS: HEMATOCRIT 30.4 % (36.0-47.0); MEAN CORPUSCULAR HGB CONC 35.4 g/dL (32.0-36.0); MEAN CORPUSCULAR VOLUME 93 fl (80-97); PLATELET COUNT 127 10^3/uL (150-450); RED BLOOD COUNT 3.26 10^6/uL (3.72-5.28); RED CELL DISTRIBUTION WIDTH 13.3 % (11.5-14.0); WHITE BLOOD COUNT 11.3 10^3/uL (4.0-10.5)
[2017-10-14 07:09] LABS: HEMOGLOBIN 10.8 g/dL (12.0-15.5)
[2017-10-14] MEDS: PRENATAL VITAMIN W DHA CAPSULE PO SCH ×2 (09:15→10:33)
[2017-10-14] MEDS: DOCUSATE SODIUM 100 MG CAPSULE PO SCH ×4 (09:15→17:34)
--- NOTE | 2017-10-14 11:26 | PDOC PROGRESS REPORT ---
Subjective-OB Subjective: Post Delivery Day:1 32 year old G3 now P2 s/p repeat ppd1. Ambulating, voiding and without difficulty. Reports burping but not passing gas or bowel movement yet. Also reports shortness of breath last night while ambulating. Denies any needs at this time Physical Exam (OB) Vital Signs: Temp Pulse Resp BP Pulse Ox 97.2 F 81 14 121/82 100 10/14/17 07:31 10/14/17 07:31 10/14/17 07:31 10/14/17 07:31 10/14/17 07:31 Intake & Output 10/13/17 10/14/17 10/15/17 06:59 06:59 06:59 Intake Total 2357 Output Total 1750 Balance 607 Weight 83.461 kg - General General Appearance: Appears well In distress: None - Dressing Removed: Yes Incision: Well Approximated - Lochia Lochia Amount: Scant < 10 ml Lochia Color: Rubra/Red - Abdomen Description: Tender, Soft, Round Hernia Present: No Fundal Description: Firm, Midline Fundal Height: u/u - u/2 - Respiratory Respiratory Status: No respiratory distress - Abdominal Distension: No distension Tenderness: Nontender - Extremities Upper extremity: Normal inspection Lower extremities: Normal inspection - Neurological Cognition: Normal Orientation: AAOx4 - Psychological Associated symptoms: Normal affect, Normal mood Objective-Diagnostic Laboratory: 10/14/17 06:50 10/14/17 06:50 WBC 11.3 H RBC 3.26 L Hgb 10.8 L D Hct 30.4 L MCV 93 MCH 33.0 MCHC 35.4 RDW 13.3 Plt Count 127 L Assessment and Plan(PN) - Assessment and Plan (1) Status post repeat low transverse section Is this a current diagnosis for this admission?: Yes Plan: routine pp care (2) Acute blood loss anemia Is this a current diagnosis for this admission?: Yes Plan: increase dietary iron and feso4 bid. - Time Spent with Patient Time with patient: Less than 15 minutes Medications reviewed and adjusted accordingly: Yes - Disposition Anticipated Discharge: Home Within: within 24 hours
[2017-10-15] MEDS: IBUPROFEN 800 MG TABLET PO SCH ×5 (00:22→12:22)
[2017-10-15] MEDS: OXYCODONE-ACETAMINOPHEN 5-325 MG TABLET PO PRN (09:47)
[2017-10-15] MEDS: PRENATAL VITAMIN W DHA CAPSULE PO SCH ×2 (09:48→11:17)
[2017-10-15] MEDS: DOCUSATE SODIUM 100 MG CAPSULE PO SCH ×2 (09:48→11:17)
--- NOTE | 2017-10-15 10:32 | PDOC PROGRESS REPORT ---
Subjective-OB Subjective: Post Delivery Day: 32 year old. Denies any needs at this time. Ready to go home. Physical Exam (OB) Vital Signs: Temp Pulse Resp BP Pulse Ox 97.6 F 69 16 118/77 100 10/15/17 08:11 10/15/17 08:11 10/15/17 08:11 10/15/17 08:11 10/15/17 08:11 Intake & Output 10/14/17 10/15/17 10/16/17 06:59 06:59 06:59 Intake Total 2357 240 Output Total 1750 Balance 607 240 - PIH/Pre-Eclampsia Clonus: Negative Headache: Absent Epigastric Pain: No Visual Changes: No - Dressing Removed: Yes Incision: Open Closure Type: Surgical Glue - Bilateral Tubal Ligation Dressing Removed: No Site: Open - Lochia Lochia Amount: Small 10-25 ml Lochia Color: Rubra/Red - Abdomen Description: Soft, Flat Hernia Present: No Bowel Sounds: Normoactive Flatus Presence: Present Stool: Yes Fundal Description: Firm Fundal Height: u/u - u/2 Objective-Diagnostic Laboratory: 10/14/17 06:50 Assessment and Plan(PN) - Time Spent with Patient Medications reviewed and adjusted accordingly: Yes - Disposition Anticipated Discharge: Home
--- NOTE | 2017-10-15 10:40 | PDOC DISCHARGE SUMMARY ---
Final Diagnosis Discharge Date: 10/15/17 - Final Diagnosis (1) Acute blood loss anemia Is this a current diagnosis for this admission?: Yes (2) Depression with anxiety Is this a current diagnosis for this admission?: Yes (3) Insufficient antepartum care Is this a current diagnosis for this admission?: Yes (4) Migraines Is this a current diagnosis for this admission?: Yes (5) Smoker Is this a current diagnosis for this admission?: Yes (6) Status post repeat low transverse section Is this a current diagnosis for this admission?: Yes Discharge Data - Discharge Medication Prescriptions: Oxycodone HCl/Acetaminophen [Percocet 5-325 mg Tablet] 1 tab PO Q4HP PRN #20 tablet PRN Reason: Ibuprofen [Motrin 800 mg Tablet] 800 mg PO Q6 #30 tablet Home Medications: Albuterol Sulfate [Proair HFA] 2 puff .ROUTE Q4HP PRN 06/17/17 Doxylamine Succinate/Vit B6 [Diclegis Dr 10-10 mg Tablet] 2 tab PO QHS 06/17/17 Inulin/Chromium Picolinate [Fiber Gummies] 1 each PO DAILY 06/17/17 No122/Iron/Folic Acid [ Multi Tablet] 1 each PO DAILY 06/17/17 Ferrous Sulfate [Iron] 325 mg PO DAILY 09/26/17 Lurasidone HCl [Latuda 40 mg Tablet] 80 mg PO DAILY 09/26/17 Sertraline HCl [Zoloft 50 mg Tablet] 50 mg PO DAILY 09/26/17 Budesonide [Pulmicort 90 mcg Flexhaler] 1 spray PO DAILY 10/12/17 Ibuprofen [Motrin 800 mg Tablet] 800 mg PO Q6 #30 tablet 10/15/17 Oxycodone HCl/Acetaminophen [Percocet 5-325 mg Tablet] 1 tab PO Q4HP PRN #20 tablet 10/15/17 Gestational Age: 39 wks Reason(s) for Admission: Ceasarean Section-Repeat Procedures: Ultrasound Intrapartum Procedure(s): : Low Cervical, Transverse - Data Baby 1 Male at 1 minute: 8 at 5 minutes: 9 Weight: 3075 kg Home with Mother: Yes Complications: No - Diagnosis Test Laboratory: Temp Pulse Resp BP Pulse Ox 97.6 F 69 16 118/77 100 10/15/17 08:11 10/15/17 08:11 10/15/17 08:11 10/15/17 08:11 10/15/17 08:11 10/12/17 10/12/17 10/14/17 12:12 12:21 06:50 RBC 3.96 3.26 L Hgb 13.0 10.8 L D Hct 37.0 30.4 L Urine Opiates Screen NEGATIVE - Discharge information/Instructions Discharge Activity: Activity As Tolerated, Balance Activity w/Rest, No Lifting Over 10 Pounds, No Lifting/Push/Pulling, Pelvic Rest, Slowly Increase Activity, No tub bath Discharge Diet: Regular Disposition: HOME, SELF-CARE Follow up with: [facility] in: 1, Weeks
[2017-10-15 12:30] VITALS: BP 134/78
== END 2017-10-15 13:30 | disposition home or self-care (01) | DRG 765 ==
LOC: 2S 05:02
PROVIDERS: ADMIT Obstetrics & Gynecology Gynecology; ATTEND Obstetrics & Gynecology Gynecology
PROC: 0UL70CZ Occlusion of Bilateral Fallopian Tubes with Extraluminal Device, Open Approach (ICD-10-PCS; 2017-10-13)
PROC: 10D00Z1 Extraction of Products of Conception, Low, Open Approach (ICD-10-PCS; principal; 2017-10-13 07:45)
DX: O34.211 Maternal care for low transverse scar from previous cesarean delivery (principal); D62 Acute posthemorrhagic anemia; Z68.41 Body mass index [BMI] 40.0-44.9, adult; O99.52 Diseases of the respiratory system complicating childbirth; O99.214 Obesity complicating childbirth; E66.9 Obesity, unspecified; O99.334 Smoking (tobacco) complicating childbirth; J45.998 Other asthma; O99.344 Other mental disorders complicating childbirth; F41.8 Other specified anxiety disorders; O99.02 Anemia complicating childbirth; F17.210 Nicotine dependence, cigarettes, uncomplicated; Z37.0 Single live birth; Z3A.39 39 weeks gestation of pregnancy; Z30.2 Encounter for sterilization
CPT/HCPCS: 1961; 36415; 59025; 80307; 81001; 85025; 85027; 86850; 86900; 86901; 94799; J0131; J0456; J1100; J1170; J2250; J2300; J2370; J2405; J2590; J3010; J3490; J7060; J7120